=== PATIENT | male | born 1995 | race Caucasian/White ===

== ENCOUNTER 2020-07-01 12:03 | Emergency (ER) | payer OTHER, SELFPAY ==
--- NOTE | ~2020-07-01 | XR_ITS ---
EXAMINATION: XR foot RT 2V INDICATION: Right foot pain TECHNIQUE: Two views of the right foot are obtained. COMPARISON: None available FINDINGS: There is no fracture, dislocation, or subluxation. The bones, soft tissues, and joint space s are normal. IMPRESSION: 1. No acute osseous abnormality. Reviewed, dictated and finalized at location A.
[2020-07-01 14:16] VITALS: BP 117/69; PULSE 58; RESP 14; TEMP 37; O2SAT 99
[2020-07-01] MEDS: KETOROLAC (*BKC) 60 MG/2 ML VIAL IM (14:50)
--- NOTE | 2020-07-01 15:09 | ED.LOWEXIN ---
HPI - Extremity Injury (Lower) General Chief Complaint: Extremity Injury, Lower Stated Complaint: injury to right foot. no weight barring Source: patient Mode of arrival: ambulatory Limitations: no limitations History of Present Illness HPI Narrative: this 24-year-old male that presents with right foot pain after he was working in the door on his anterior foot causing pain with swelling has good range of motion has a good distal pedal pulse with some numbness in his 4th and 5th toe has good range of motion no other injuries. The area is mildly swollen and tender with palpation. MD complaint: foot injury Injury: Right: foot ( Swelling and pain) Type of Injury: blunt Place: work Severity: moderate Severity scale (1-10): 8 Exacerbating factors: movement Context: direct blow Other symptoms: none Treatments prior to arrival: cold therapy Related Data Allergies Allergy/AdvReac Type Severity Reaction Status Date / Time No Known Allergies Allergy Verified 07/01/20 14:25 Review of Systems Review of Systems: All systems reviewed & are unremarkable except as noted in HPI and below PMFSH Past Medical History Medical History Patient denies medical problems Exam Const: General: no acute distress and alert Orientation/consciousness: patient oriented x3 HENMT: Head: normal to inspection Eyes: Conjunctivae: conjunctivae normal Pupils: Equal, round and reactive pupils present EOM: EOMs intact bilaterally Neck: Neck: normal visual inspection, no lymphadenopathy and no meningeal signs Chest: Chest palpation & inspection: normal inspection of the chest Resp: Effort & Inspection: normal respiratory effort Auscultation: clear to auscultation bilaterally Cardio: Rate: regular rate Rhythm: regular rhythm GI: GI Palp: Yes Soft to palpation Percussion: Yes normal to percussion Back/Spine/Pelvis: Back: no CVA tenderness Skin: General skin exam: normal color Rashes: no rashes Neuro: General: patient oriented x3, moves all extremities and no meningeal signs Extrem: Other: swollen anterior right foot with tenderness with palpation Psych: Appearance: grossly normal Mental Status: mental status grossly normal Affect: normal affect Thought content: Yes Normal thought content present Course Course Emergency Course: pain is improved after IM Toradol, explained to patient that a negative x-rays and no fractures. Vital Signs Vital signs: Vital Signs Temperature 37.0 C 09/03/20 14:16 Pulse Rate 58 L 07/01/20 14:16 Respiratory Rate 14 07/01/20 14:16 Blood Pressure 117/69 07/01/20 14:16 Pulse Oximetry 99 07/01/20 14:16 Temperature 37.0 C 07/01/20 14:16 Pulse Rate 58 L 07/01/20 14:16 Respiratory Rate 14 07/01/20 14:16 Blood Pressure 117/69 07/01/20 14:16 Pulse Oximetry 99 07/01/20 14:16 MDM - Extremity Injury (Lower) Imaging Data Attestation: I personally reviewed and interpreted this imaging study as follows: Critical Care Time Critical Care Time Critical Care Time: No Discharge Plan Discharge Clinical Impression: Strain of foot, right Qualifiers: Encounter type: initial encounter Qualified Code(s): S96.911A - Strain of unspecified muscle and tendon at ankle and foot level, right foot, initial encounter Patient Disposition: Home, Self-Care Condition: Stable Instructions: Antibiotic Form, Foot Contusion (ED) Additional Instructions: take medicine as prescribed and follow-up primary care physician if symptoms persist or worsen. Prescriptions: New naproxen 500 mg tablet 500 mg PO BID Qty: 14 RF: 0 Follow-up/Referrals: UNKNOWN,DOCTOR [Primary Care Provider] - Time of Disposition: 15:14
[2020-07-01 15:26] VITALS: RESP 15; O2SAT 100
== END 2020-07-01 15:30 | disposition home or self-care (01) ==
PROVIDERS: Emergency Provider Emergency Medicine
DX: S96.911A Strain of unspecified muscle and tendon at ankle and foot level, right foot, initial encounter (principal)
CPT/HCPCS: 73620; 96372; 99283; J1885

== ENCOUNTER 2021-05-02 17:48 | Emergency (ER) | payer SELFPAY ==
[2021-05-02 17:55] VITALS: BP 118/88; PULSE 79; RESP 20; TEMP 36.7; O2SAT 100
--- NOTE | 2021-05-02 18:03 | ED.DENTAL ---
HPI - Dental/Oral General Chief complaint: Dental/Oral Stated complaint: tooth pain Source: patient Mode of arrival: ambulatory Limitations: no limitations History of Present Illness HPI Narrative: is a 25-year-old gentleman presents with dental pain with some surrounding gum inflammation and swollen tender right submandibular gland with no fever chills no shortness of breath. MD Complaint: tooth pain Teeth map: 1. dental abscess right upper molar area Onset (ago): week(s) Duration: constant Severity: moderate Severity scale (1-10): 6 Relieving factors: NSAIDs Exacerbating factors: chewing Related Data Allergies Allergy/AdvReac Type Severity Reaction Status Date / Time No Known Allergies Allergy Verified 07/01/20 14:25 Review of Systems Review of Systems: All systems reviewed & are unremarkable except as noted in HPI and below [facility] Past Medical History Medical History (Updated 05/02/21 @ 18:05 by Vincent Villarreal MD) Patient denies medical problems Exam Const: General: no acute distress Orientation/consciousness: patient oriented x3 HENMT: Head: normal to inspection Other: Right upper molar dental pain with surrounding gum inflammation and swe Eyes: Conjunctivae: conjunctivae normal Pupils: Equal, round and reactive pupils present Neck: Neck: normal visual inspection and no meningeal signs Chest: Chest palpation & inspection: normal inspection of the chest Resp: Effort & Inspection: normal respiratory effort Auscultation: clear to auscultation bilaterally Cardio: Rate: regular rate Rhythm: regular rhythm GI: Auscultation: normal bowel sounds Skin: General skin exam: normal color Rashes: no rashes Neuro: General: patient oriented x3, moves all extremities and no meningeal signs Extrem: General: normal to inspection and no pedal edema Psych: Appearance: grossly normal Mental Status: mental status grossly normal Affect: normal affect Course Course Emergency Course: send medication to patient's pharmacy Vital Signs Vital signs: Vital Signs Temperature 36.7 C 05/02/21 17:55 Pulse Rate 79 05/02/21 17:55 Respiratory Rate 05/02/21 17:55 Blood Pressure 118/88 05/02/21 17:55 Pulse Oximetry 100 05/02/21 17:55 Temperature 36.7 C 05/02/21 17:55 Pulse Rate 79 05/02/21 17:55 Respiratory Rate 20 05/02/21 17:55 Blood Pressure 118/88 05/02/21 17:55 Pulse Oximetry 100 05/02/21 17:55 Critical Care Time Critical Care Time Critical Care Time: No Discharge Plan Discharge Clinical Impression: Dental abscess, Toothache Patient Disposition: Home, Self-Care Condition: Stable Instructions: Dental Abscess (ED) Additional Instructions: take medicine as prescribed and follow-up with dentist as soon as possible for further evaluation treatment. Prescriptions: New amoxicillin 500 mg capsule 500 mg PO TID Qty: 30 RF: 0 naproxen 500 mg tablet 500 mg PO BID Qty: 14 RF: 0 Follow-up/Referrals: UNKNOWN,DOCTOR [Primary Care Provider] - Stand Alone Forms: Work/School Release IP Time of Disposition: 18:06
== END 2021-05-02 18:10 | disposition home or self-care (01) ==
PROVIDERS: Emergency Provider Emergency Medicine
DX: K04.7 Periapical abscess without sinus (principal); K08.89 Other specified disorders of teeth and supporting structures
CPT/HCPCS: 99283

== ENCOUNTER 2021-10-18 14:40 | Outpatient (CLI) | payer OTHER, SELFPAY ==
[2021-10-18 16:20] LABS: SARS-CoV-2 Ag Negative (Negative)
[2021-10-18 17:09] LABS: SARS-CoV-2 RNA PCR Negative (Negative)
== END 2021-10-18 14:41 | disposition home or self-care (01) ==
LOC: CHSLAB 14:44
PROVIDERS: PCP Physician Assistant; Visit Provider Nurse Practitioner Psychiatric/Mental Health
DX: Z20.822 Contact with and (suspected) exposure to COVID-19 (principal)
CPT/HCPCS: 87426; C9803; U0003; U0005

== ENCOUNTER 2022-01-01 09:49 | Emergency (ER) | payer OTHER, SELFPAY ==
[2022-01-01 10:00] VITALS: BP 139/87; PULSE 72; RESP 20; TEMP 36.8; O2SAT 100
--- NOTE | 2022-01-01 10:26 | ED.EAR ---
HPI - Ear Problem General Chief complaint: Ear Stated complaint: R ear pain Time Seen by Provider: 01/01/22 09:51 Source: patient and RN notes reviewed Mode of arrival: ambulatory Limitations: no limitations History of Present Illness Complaint: ear pain (right) Location: right ear Duration: constant Severity: moderate Relieving factors: nothing Exacerbating factors: nothing Discharge from ear: Reports no Treatment prior to arrival: none Related Data Allergies Allergy/AdvReac Type Severity Reaction Status Date / Time No Known Allergies Allergy Verified 01/01/22 10:05 Review of Systems Review of Systems: All systems reviewed & are unremarkable except as noted in HPI and below ENT: Reports nasal congestion (right earache and congestion.) [facility] Past Medical History Medical History Eustachian tube dysfunction Otitis media Patient denies medical problems Exam Const: General: no acute distress and alert Nutritional Appearance: well nourished Orientation/consciousness: patient oriented x3 HENMT: Head: normal to inspection Ears: external ears normal, EAC's normal and TM abnormal (mildly dull TMs bilateral.) Eyes: Conjunctivae: conjunctivae normal Pupils: Equal, round and reactive pupils present EOM: EOMs intact bilaterally Neck: Neck: normal visual inspection and no lymphadenopathy Other: SUPPLE. Resp: Effort & Inspection: normal respiratory effort Auscultation: clear to auscultation bilaterally Cardio: Rate: regular rate Rhythm: regular rhythm GI: GI Palp: Yes Soft to palpation and No Tenderness to palpation present (GI) Auscultation: normal bowel sounds : General: Yes no CVA tenderness Male General Exam: Yes normal external exam Testes: Testes normal Back/Spine/Pelvis: Back: no CVA tenderness Skin: General skin exam: normal color Neuro: General: patient oriented x3, moves all extremities, no meningeal signs, no focal motor deficits and CN's II-XI intact bilaterally Extrem: General: normal to inspection and no pedal edema Psych: Appearance: grossly normal and well kempt Mental Status: mental status grossly normal Affect: normal affect Attitude: cooperative Thought content: Yes Normal thought content present Course Course Emergency Course: Pt was stable in the ED with less ear pain. Reevaluation(s) Reevaluation #1: VSS Date: 01/01/22 Time: 10:31 Vital Signs Vital signs: Vital Signs Temperature 36.8 C 01/01/22 10:00 Pulse Rate 72 01/01/22 10:00 Respiratory Rate 20 01/01/22 10:00 Blood Pressure 139/87 01/01/22 10:00 Pulse Oximetry 100 01/01/22 10:00 Temperature 36.8 C 01/01/22 10:00 Pulse Rate 72 01/01/22 10:00 Respiratory Rate 20 01/01/22 10:00 Blood Pressure 139/87 01/01/22 10:00 Pulse Oximetry 100 01/01/22 10:00 Medical Decision Making Differential Diagnosis Differential Diagnosis: earache, OM, eustachian tube dysfunction. Vital Signs Vital Signs: Vital Signs Temperature 36.8 C 01/01/22 10:00 Pulse Rate 72 01/01/22 10:00 Respiratory Rate 20 01/01/22 10:00 Blood Pressure 139/87 01/01/22 10:00 Pulse Oximetry 100 01/01/22 10:00 Temperature 36.8 C 01/01/22 10:00 Pulse Rate 72 01/01/22 10:00 Respiratory Rate 20 01/01/22 10:00 Blood Pressure 139/87 01/01/22 10:00 Pulse Oximetry 100 01/01/22 10:00 Critical Care Time Critical Care Time Critical Care Time: No Total Critical Care Time: 0 Discharge Plan Discharge Clinical Impression: Otitis media Qualifiers: Otitis media type: unspecified Chronicity: acute Qualified Code(s): H66.90 - Otitis media, unspecified, unspecified ear Eustachian tube dysfunction Qualifiers: Laterality: right Qualified Code(s): H69.81 - Other specified disorders of Eustachian tube, right ear Patient Disposition: Home, Self-Care Condition: Stable Instructions: Antibiotic Form Additional Instructions
[2022-01-01] MEDS: IBUPROFEN 400 MG TABLET 800 MG PO (10:34)
[2022-01-01 10:39] VITALS: BP 137/95; PULSE 84; RESP 20; TEMP 36.7; O2SAT 100
== END 2022-01-01 10:41 | disposition home or self-care (01) ==
PROVIDERS: Emergency Provider Emergency Medicine
DX: H66.90 Otitis media, unspecified, unspecified ear (principal); H69.81 Other specified disorders of Eustachian tube, right ear
CPT/HCPCS: 99283; A9270

== ENCOUNTER 2022-02-14 19:44 | Emergency (ER) | payer OTHER, SELFPAY ==
--- NOTE | ~2022-02-14 | XR_ITS ---
EXAM: XR shoulder LT min 2V HISTORY: LT all over shoulder pain x 1 wk w/ limited movement NKI COMPARISON: None available FINDINGS: Normal mineralization. No fracture or dislocation. No lytic or blastic lesion. Joint space s maintained. No erosion or periosteal change. Soft tissues within normal limits. IMPRESSION: No acute osseous finding in left shoulder. Reviewed, dictated and finalized at location K.
[2022-02-14 19:55] VITALS: BP 112/64; PULSE 71; RESP 18; TEMP 36.6; O2SAT 100
--- NOTE | 2022-02-14 20:15 | ED.EXTPRO ---
HPI - Extremity Problem General Chief complaint: Extremity Problem,Nontraumatic Stated complaint: Lt shoulder pain Time Seen by Provider: 02/14/22 20:15 Source: patient History of Present Illness HPI Narrative: 26-year-old male, right handed, presents to the ER with a 3 day history of -- left shoulder pain worse on moving the shoulder no trauma. No history of recent of heavy weights MD Complaint: extremity pain Onset (ago): day(s) ( started 3 days ago) Location: left and upper extremity Quality: aching Radiation: none Relieving factors: immobilization Exacerbating factors: range of motion Associated symptoms: denies other symptoms Related Data Allergies Allergy/AdvReac Type Severity Reaction Status Date / Time No Known Allergies Allergy Verified 01/01/22 10:05 Review of Systems Review of Systems: All systems reviewed & are unremarkable except as noted in HPI and below Constitutional: Constitutional: Reports as per HPI and Reports no additional constitutional complaints Eyes: Eyes: Reports as per HPI and Reports no additional eye complaints ENT: Reports system reviewed and no additional complaints, except as documented and Reports as per HPI Cardiovascular: Cardiovascular: Reports as per HPI and Reports no additional cardiovascular complaints Respiratory: Respiratory: Reports as per HPI and Reports no additional respiratory complaints Gastrointestinal: Gastrointestinal: Reports as per HPI and Reports no additional gastrointestinal complaints Genitourinary: Genitourinary: Reports no additional male genitourinary complaints and Reports as per HPI Musculoskeletal: Musculoskeletal: Reports no additional musculoskeletal complaints Comments: left shoulder pain with decreased range of motion Integumentary/Breasts: Skin/Breast: Reports system reviewed and no additional complaints, except as docu and Reports as per HPI Neurologic: Reports system reviewed and no additional complaints, except as documented and Reports as per HPI Psychiatric: Psychiatric: Reports no additional psychiatric complaints and Reports as per HPI Endocrine: Endocrine: Reports no additional endocrine complaints and Reports as per HPI Hematologic/Lymphatic: Hematologic/Lymphatic: Reports no additional hematologic/lymphatic complaints and Reports as per HPI Allergic/Immunologic: Allergic/Immunologic: Reports no additional allergic/immunologic complaints and Reports as per HPI PMFSH Past Medical History Medical History Eustachian tube dysfunction Otitis media Patient denies medical problems Exam Const: General: no acute distress Orientation/consciousness: patient oriented x3 HENMT: Head: normal to inspection Eyes: Conjunctivae: conjunctivae normal Pupils: Equal, round and reactive pupils present EOM: EOMs intact bilaterally Neck: Neck: normal visual inspection and no lymphadenopathy Chest: Chest palpation & inspection: normal inspection of the chest and abnormal inspection of the chest Resp: Effort & Inspection: normal respiratory effort Auscultation: clear to auscultation bilaterally Cardio: Rate: regular rate Rhythm: regular rhythm GI: GI Palp: Yes Soft to palpation Other: no tenderness/ rigidity / rebound. : Testes: Testes normal Back/Spine/Pelvis: Back: no CVA tenderness Skin: General skin exam: normal color Neuro: General: patient oriented x3 and moves all extremities Extrem: Other: Tenderness in the left subacromial region. Pain on abducting the shoulder. Psych: Mental Status: mental status grossly normal Affect: normal affect Course Vital Signs Vital signs: Vital Signs Temperature 36.6 C 02/14/22 19:55 Pulse Rate 71 02/14/22 19:55 Respiratory Rate 18 02/14/22 19:55 Blood Pressure 112/64 02/14/22 19:55 Pulse Oximetry 100 02/14/22 19:55 Temperature 36.6 C 02/14/22 19:55 Pulse Rate 71 02/14/22 19:55 Respiratory R
[2022-02-14] MEDS: KETOROLAC 30 MG/ML VIAL (*BKC) IM (21:07)
[2022-02-14 21:44] VITALS: BP 128/74; PULSE 74; RESP 18; TEMP 36.8; O2SAT 98
== END 2022-02-14 21:45 | disposition home or self-care (01) ==
PROVIDERS: Emergency Provider Internal Medicine Critical Care Medicine
DX: M77.8 Other enthesopathies, not elsewhere classified (principal)
CPT/HCPCS: 73030; 96372; 99283; A4565; J1885

== ENCOUNTER 2022-04-27 19:52 | Emergency (ER) | payer OTHER, SELFPAY ==
[2022-04-27 20:12] VITALS: BP 103/69; PULSE 82; RESP 18; TEMP 36.7; O2SAT 97
--- NOTE | 2022-04-27 20:22 | ED.SKABFB ---
HPI - Skin/Abscess/Foreign Bdy General Chief complaint: Skin/Abscess/Foreign Body Stated complaint: swelling eat, red line going down neck Source: patient Mode of arrival: ambulatory Limitations: no limitations History of Present Illness HPI narrative: This is a 26-year-old gentleman that presents after he was outdoors and felt something bite his left earlobe and there is a punctate lesion and the top of his left ear area of swelling and erythema, currently there is no drainage no fever chills no shortness of breath no nausea vomiting abdominal pain. MD complaint: insect bite/sting, lesion and discoloration Onset (ago): hour(s) Tetanus up to date: no Location: head Severity: mild Related Data Allergies Allergy/AdvReac Type Severity Reaction Status Date / Time No Known Allergies Allergy Verified 01/01/22 10:05 Review of Systems Review of Systems: All systems reviewed & are unremarkable except as noted in HPI and below PMFSH Past Medical History Medical History Eustachian tube dysfunction Otitis media Patient denies medical problems Exam Const: General: healthy appearing Nutritional Appearance: well nourished Orientation/consciousness: patient oriented x3 Limitations: no limitations HENMT: Head: normal to inspection Other: Area of erythema with punctate lesion left ear Eyes: Pupils: Equal, round and reactive pupils present EOM: EOMs intact bilaterally Neck: Neck: normal visual inspection, no lymphadenopathy and no meningeal signs Chest: Chest palpation & inspection: normal inspection of the chest Resp: Effort & Inspection: normal respiratory effort Auscultation: clear to auscultation bilaterally Cardio: Rate: regular rate Rhythm: regular rhythm GI: GI Palp: Yes Soft to palpation Auscultation: normal bowel sounds Skin: Wounds: wounds noted Neuro: General: patient oriented x3 Cranial nerves: Yes Nystagmus not present Extrem: General: normal to inspection and no clubbing, cyanosis or edema Psych: Mental Status: mental status grossly normal Course Course Emergency Course: patient was updated with his tetanus vaccine and given a dose of IM ceftriaxone. Vital Signs Vital signs: Vital Signs Temperature 36.7 C 04/27/22 20:12 Pulse Rate 82 04/27/22 20:12 Respiratory Rate 18 04/27/22 20:12 Blood Pressure 103/69 04/27/22 20:12 Pulse Oximetry 97 04/27/22 20:12 Oxygen Delivery Room Air 04/27/22 20:12 Temperature 36.7 C 04/27/22 20:12 Pulse Rate 82 04/27/22 20:12 Respiratory Rate 18 04/27/22 20:12 Blood Pressure 103/69 04/27/22 20:12 Pulse Oximetry 97 04/27/22 20:12 Oxygen Delivery Room Air 04/27/22 20:12 Critical Care Time Critical Care Time Critical Care Time: No Discharge Plan Discharge Clinical Impression: Cellulitis Qualifiers: Site of cellulitis: unspecified site Qualified Code(s): L03.90 - Cellulitis, unspecified Insect bites Qualifiers: Encounter type: initial encounter Site of insect bite: head Site of insect bite of head: other part Qualified Code(s): S00.86XA - Insect bite (nonvenomous) of other part of head, initial encounter Patient Disposition: Home, Self-Care Condition: Stable Instructions: Antibiotic Form, Cellulitis (ED), Insect Bite or Sting (ED) Additional Instructions: take medicine as prescribed and follow-up with primary care physician if symptoms persist or worsen. Prescriptions: New amoxicillin-pot clavulanate [Augmentin] 500-125 mg tablet 1 tablet PO TID Qty: 30 0RF Follow-up/Referrals: UNKNOWN,DOCTOR [Primary Care Provider] - Time of Disposition: 20:26
[2022-04-27] MEDS: TETANUS,DIPHTHERIA,AC PERTUSSIS ADULT 0.5 ML (ADACEL) IM (20:35)
[2022-04-27] MEDS: cefTRIAXone 1 GM, LIDOCAINE HCL 1% LOCAL INJ 2.1 ML IM (20:36)
[2022-04-27 20:42] VITALS: BP 118/62; PULSE 74; RESP 20; O2SAT 99
== END 2022-04-27 20:47 | disposition home or self-care (01) ==
PROVIDERS: Emergency Provider Emergency Medicine
DX: L03.90 Cellulitis, unspecified (principal); S00.86XA Insect bite (nonvenomous) of other part of head, initial encounter; W57.XXXA Bitten or stung by nonvenomous insect and other nonvenomous arthropods, initial encounter
CPT/HCPCS: 73140; 90471; 90715; 96372; 99283; J0696

== ENCOUNTER 2022-12-12 04:34 | Emergency (ER) | payer OTHER, SELFPAY ==
[2022-12-12 04:36] VITALS: BP 130/97; PULSE 98; RESP 18; TEMP 36.3; O2SAT 98
--- NOTE | 2022-12-12 04:49 | ED.GENADULT ---
HPI - General Adult General Chief complaint: Dental/Oral Stated complaint: Tooth Ache History of Present Illness HPI narrative: The patient is a 27-year-old male who is otherwise healthy, who has had intermittent pain in the right lower posterior molar for few months, off and on, that resolved spontaneously. However, for the past week, the pain has been more constant in nature, without radiation elsewhere. He does have several teeth that have been pulled in the past. He also has several teeth that have cavities but are not causing him any pain. He has taken ibuprofen, most recently 1200 mg 2 hours ago to try to relieve the pain but still has significant discomfort. 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 He has not seen a dentist in some time. He has had a dental visit in the past. No fevers or chills. No facial swelling. Able to swallow liquids and solids. No other complaints. Related Data Allergies Allergy/AdvReac Type Severity Reaction Status Date / Time No Known Allergies Allergy Verified 01/01/22 10:05 Review of Systems Review of Systems: All systems reviewed & are unremarkable except as noted in HPI and below Constitutional: Constitutional: Reports as per HPI, Reports no additional constitutional complaints, Denies chills, Denies excessive sweating, Denies fatigue, Denies fever(s), Denies headache(s) and Denies weakness Eyes: Eyes: Reports as per HPI, Reports no additional eye complaints, Denies change in vision and Denies photophobia ENT: Reports system reviewed and no additional complaints, except as documented, Reports as per HPI, Reports dental pain, Denies dysphagia, Denies vertigo, Denies dizziness, Denies headache(s), Denies lip swelling, Denies nasal congestion, Denies sore throat, Denies throat swelling and Denies tongue swelling Cardiovascular: Cardiovascular: Reports as per HPI, Reports no additional cardiovascular complaints, Denies chest pain, Denies syncope, Denies rapid heart rate and Denies dyspnea Respiratory: Respiratory: Reports as per HPI, Reports no additional respiratory complaints, Denies chest congestion, Denies cough, Denies dyspnea and Denies wheezing Gastrointestinal: Gastrointestinal: Reports as per HPI, Reports no additional gastrointestinal complaints, Denies abdominal pain, Denies constipation, Denies dysphagia, Denies diarrhea, Denies nausea and Denies vomiting Genitourinary: Genitourinary: Reports as per HPI, Denies hematuria, Denies oliguria, Denies dysuria, Denies urinary frequency, Denies urinary incontinence and Denies urinary urgency Musculoskeletal: Musculoskeletal: Reports no additional musculoskeletal complaints, Denies back pain, Denies myalgias, Denies arthralgias, Denies joint swelling and Denies numbness Integumentary/Breasts: Skin/Breast: Reports system reviewed and no additional complaints, except as docu, Denies pruritus, Denies erythema, Denies rash and Denies skin ulcer Neurologic: Reports system reviewed and no additional complaints, except as documented, Reports as per HPI, Denies confusion, Denies vertigo, Denies dizziness, Denies syncope, Denies headache(s), Denies focal weakness, Denies numbness and Denies weakness Psychiatric: Psychiatric: Reports as per HPI, Denies anxiety, Denies confusion, Denies depression, Denies homicidal ideation and Denies suicidal ideation Endocrine: Endocrine: Reports no additional endocrine complaints, Denies excessive sweating, Denies fatigue, Denies polydipsia and Denies polyuria Hematologic/Lymphatic: Hematologic/Lymphatic: Reports no additional hematologic/lymphatic complaints, Denies easy bleeding and Denies easy bruising Allergic/Immunologic: Allergic/Immunologic: Reports no additional allergic/immunologic complaints, Denies lip swelling, Denies throat swelling, Denies tongue swelling and Denies wheezing PMFSH Past Medical History Medical History Eustachian tube dysf
[2022-12-12] MEDS: ACETAMINOPHEN 325 MG TABLET 650 MG PO (04:51)
[2022-12-12] MEDS: HYDROcodone/acetaminophen (*CRX) 5-325 MG TABLET 1 TAB PO (04:52)
[2022-12-12] MEDS: AMOXICILLIN 500 MG CAPSULE PO (04:52)
[2022-12-12 05:06] VITALS: BP 130/74; PULSE 84; RESP 18; O2SAT 99
== END 2022-12-12 05:09 | disposition home or self-care (01) ==
PROVIDERS: Emergency Provider Emergency Medicine
DX: K02.9 Dental caries, unspecified (principal); K08.89 Other specified disorders of teeth and supporting structures
CPT/HCPCS: 99283; A9270

== ENCOUNTER 2023-09-14 18:40 | Emergency (ER) | payer OTHER, SELFPAY ==
[2023-09-14 18:40] VITALS: BP 112/59; PULSE 85; RESP 20; TEMP 38.2; O2SAT 98
--- NOTE | 2023-09-14 18:49 | ED.URI ---
HPI - URI/Sore Throat General Chief Complaint: Upper Respiratory Infection Stated Complaint: body aches and fever Time Seen by Provider: 09/14/23 18:49 Source: patient and RN notes reviewed Mode of arrival: ambulatory Limitations: no limitations History of Present Illness MD elicited complaint: fever and cough Onset (ago): hour(s) (12) Consistency: constant Severity: moderate Description of mucous: clear Able to tolerate fluids by mouth: Yes Exacerbating factors: nothing Relieving factors: NSAID Associated symptoms: fever, chills, myalgias and nausea Treatments prior to arrival: ibuprofen (at 10 AM) Related Data Home Medications Medication Instructions Recorded Confirmed No Home Medications 09/14/23 09/14/23 Allergies Allergy/AdvReac Type Severity Reaction Status Date / Time No Known Allergies Allergy Verified 01/01/22 10:05 [facility] Past Medical History Medical History (Updated 09/14/23 @ 19:40 by Minesh Corea MD) Eustachian tube dysfunction Otitis media Patient denies medical problems Surgical History Surgical History (Updated 09/14/23 @ 18:56 by Minesh Corea MD) No pertinent past surgical history Exam Const: General: healthy appearing, no acute distress and alert Nutritional Appearance: well nourished Orientation/consciousness: patient oriented x3 Limitations: no limitations HENMT: Head: normal to inspection Ears: external ears normal Face/Nose/Sinus: Normal external nose present Face and sinus: normal facial exam Mouth: Yes moist mucous membranes Eyes: Conjunctivae: conjunctivae normal Pupils: Equal, round and reactive pupils present EOM: EOMs intact bilaterally Neck: Neck: normal visual inspection Resp: Effort & Inspection: normal respiratory effort Auscultation: clear to auscultation bilaterally Cardio: Rate: regular rate Rhythm: regular rhythm GI: GI Palp: Yes Soft to palpation and No Tenderness to palpation present (GI) Auscultation: normal bowel sounds Back/Spine/Pelvis: Cervical Spine: cervical ROM normal Thoracic/Lumbar Spine: thoraco-lumbar ROM normal Skin: General skin exam: normal color Rashes: no rashes Neuro: General: patient oriented x3, moves all extremities, no focal motor deficits and CN's II-XI intact bilaterally Speech: normal speech Gait exam (Neuro): Normal gait present Extrem: General: normal to inspection and no clubbing, cyanosis or edema Psych: Mental Status: mental status grossly normal Affect: normal affect Attitude: cooperative MDM - URI/Sore Throat Differential Diagnosis Differential diagnosis: Likely upper respiratory infection, viral infection, bronchitis, influenza and other ( COVID ) Lab Data Attestation: I reviewed the patient's lab results. Discharge Plan Discharge Clinical Impression: COVID-19 Patient Disposition: Home, Self-Care Condition: Stable Instructions: COVID-19 (Coronavirus Disease 2019) (ED), COVID-19: Slow the Coronavirus Spread (ED), How to Recover from COVID-19 at Home (ED) Additional Instructions: drink plenty of fluids, use Tylenol and or Motrin as needed for body aches, get plenty of rest, self quarantine for total of 5 days and then wear mask for the next 5 days anywhere you go outside the home Prescriptions: No Action No Home Medications Follow-up/Referrals: Ivis,KUNAL Sheehan [Primary Care Provider] - Time of Disposition: 19:40
[2023-09-14] MEDS: IBUPROFEN 600 MG TABLET PO (19:05)
--- NOTE | 2023-09-14 19:09 | PC.NURSE ---
report to magen escobedo
[2023-09-14 19:31] LABS: Influenza A QL RT-PCR Negative (Negative); Influenza B QL RT-PCR Negative (Negative); SARS-CoV-2 RNA PCR Positive (Negative)
[2023-09-14 19:56] VITALS: BP 96/68; RESP 18; TEMP 37.7; O2SAT 99
== END 2023-09-14 19:58 | disposition home or self-care (01) ==
PROVIDERS: Emergency Provider Emergency Medicine; PCP Physician Assistant
DX: U07.1 COVID-19 (principal)
CPT/HCPCS: 87636; 99283; A9270

== ENCOUNTER 2023-12-22 15:53 | Emergency (ER) | payer OTHER, SELFPAY ==
[2023-12-22 16:01] VITALS: BP 122/81; PULSE 86; RESP 14; TEMP 36.7; O2SAT 97
--- NOTE | 2023-12-22 16:01 | ED.EXTPRO ---
HPI - Extremity Problem General Chief complaint: Wound/Laceration Stated complaint: left middle finger injury Time Seen by Provider: 12/22/23 15:56 Source: patient Mode of arrival: ambulatory Limitations: no limitations History of Present Illness HPI Narrative: Patient is a 28 year old male with a significant PMH that presents today with a finger laceration to his left 4th digit. He was using a sawsa And he cut his finger. Lacerations to the 4th digit on left hand the lateral side. No other injuries are reported. MD Complaint: extremity pain Onset (ago): hour(s) Pain Consistency: constant Location: left and other (finger 4th digit ) Severity scale (1-10): 3 Quality: stabbing Radiation: distal Relieving factors: nothing Exacerbating factors: nothing Associated symptoms: denies other symptoms Related Data Home Medications Medication Instructions Recorded Confirmed No Home Medications 09/14/23 12/22/23 Allergies Allergy/AdvReac Type Severity Reaction Status Date / Time No Known Allergies Allergy Verified 12/22/23 16:08 Review of Systems Review of Systems: All systems reviewed & are unremarkable except as noted in HPI and below Constitutional: Constitutional: Reports as per HPI Eyes: Eyes: Reports no additional eye complaints ENT: Reports system reviewed and no additional complaints, except as documented Cardiovascular: Cardiovascular: Reports no additional cardiovascular complaints Respiratory: Respiratory: Reports no additional respiratory complaints Gastrointestinal: Gastrointestinal: Reports no additional gastrointestinal complaints Genitourinary: Genitourinary: Reports no additional male genitourinary complaints Musculoskeletal: Musculoskeletal: Reports as per HPI Integumentary/Breasts: Skin/Breast: Reports as per HPI Neurologic: Reports system reviewed and no additional complaints, except as documented Psychiatric: Psychiatric: Reports no additional psychiatric complaints Endocrine: Endocrine: Reports no additional endocrine complaints Hematologic/Lymphatic: Hematologic/Lymphatic: Reports no additional hematologic/lymphatic complaints Allergic/Immunologic: Allergic/Immunologic: Reports no additional allergic/immunologic complaints PMFSH Past Medical History Medical History Eustachian tube dysfunction Otitis media Patient denies medical problems Surgical History Surgical History No pertinent past surgical history Exam Const: General: healthy appearing Nutritional Appearance: well nourished Orientation/consciousness: patient oriented x3 HENMT: Head: normal to inspection Ears: external ears normal Face/Nose/Sinus: Normal external nose present Face and sinus: normal facial exam Eyes: Conjunctivae: conjunctivae normal Pupils: Equal, round and reactive pupils present EOM: EOMs intact bilaterally Neck: Neck: normal visual inspection Chest: Chest palpation & inspection: normal inspection of the chest Resp: Effort & Inspection: normal respiratory effort Auscultation: clear to auscultation bilaterally Cardio: Rate: regular rate Rhythm: regular rhythm GI: GI Palp: Yes Soft to palpation Back/Spine/Pelvis: Back: no CVA tenderness Skin: General skin exam: normal color Rashes: no rashes Wounds: no wounds Neuro: General: patient oriented x3 Cranial nerves: Yes Nystagmus not present Speech: normal speech Extrem: General: normal to inspection Psych: Mental Status: mental status grossly normal Affect: normal affect Course Vital Signs Vital signs: Vital Signs Temperature 98.1 F 12/22/23 16:01 Pulse Rate 86 12/22/23 16:01 Respiratory Rate 14 12/22/23 16:01 Blood Pressure 122/81 12/22/23 16:01 Pulse Oximetry 97 12/22/23 16:01 Oxygen Delivery Room Air 12/22/23 16:01 Temperature 98.1 F 12/22/23 16:01 Pulse Rate 86 12/22/23
[2023-12-22] MEDS: LIDOCAINE HCL 1% LOCAL INJ 10 ML VIAL INFILTRATE (16:25)
== END 2023-12-22 16:35 | disposition home or self-care (01) ==
PROVIDERS: Emergency Provider Family Medicine; PCP Physician Assistant
DX: S61.215A Laceration without foreign body of left ring finger without damage to nail, initial encounter (principal); W27.8XXA Contact with other nonpowered hand tool, initial encounter
CPT/HCPCS: 12001; 99282